=== PATIENT | male | born 1950 | race Caucasian/White ===

== ENCOUNTER 2018-03-17 14:18 | Inpatient (IN) | payer MEDICARE ==
[~2018-03-17] VITALS: Ht 172.7 cm; Wt 89.7 kg
[2018-03-17] VITALS (128 sets, daily range): BP systolic 105–107; BP diastolic 57–62; PULSE 58–75; TEMP 97.8–98.2; O2SAT 90–97
[~2018-03-17 14:18] MED LIST: ASPIRIN 81M81 MG/TA2 PO; ATROVENT I0.2 MG/1 M IH; BYSTOLIC5 MG PO; CADUET 5 MG-101 TAB PO; CORDARONE200 MG/TAB PO; ELIQUIS 5MG PO; LOPRESSOR 225 MG/TAB PO; PROVENTIL0.09 MG/A1 IH; RT ADVAIR 228 DISKUS IH; RT SPIRIVA18 MCG IH; ZESTRIL 20MG TA20 MG PO
[2018-03-17] MEDS ORDERED: CORDARONE200 MG/TAB PO (14:43)
[2018-03-17] MEDS ORDERED: NORVASC 5MG5 MG/TAB PO (14:44)
[2018-03-17] MEDS ORDERED: ARICEPT 5MG PO (14:44)
[2018-03-17 14:45] LABS: BASO % 0.2 % (0.0-2.0); EOS # 0.1 (0.0-0.7); GRAN # 7.6 (1.4-6.5); GRAN % 75.8 % (42.2-75.2); HEMATOCRIT 37.5 % (42.0-52.0); HEMOGLOBIN 12.4 g/dl (13.5-18.0); LYMPH # 1.8 (1.2-3.4); LYMPH % 17.4 % (20.0-51.0); MEAN CELL VOLUME 89 fl (80.0-100.0); MEAN CORPUSCULAR HEMOGLOBIN 30 pg (27.0-31.0); MEAN CORPUSCULAR HGB CONC 33 g/dl (33.0-37.0); MEAN PLATELET VOLUME 8.7 fl (7.4-10.4); MONO # 0.5 (0.1-0.6); MONO % 4.6 % (1.7-9.3); PLATELET COUNT 318 K/mm3 (130-400); REDCELL DISTRIBUTION WIDTH-CV 14.5 % (11.5-14.5)
[2018-03-17 14:47] LABS: PROTHROMBIN TIME 11.8 SECONDS (9.7-12.8)
[2018-03-17 14:59] LABS: ALANINE AMINOTRANSFERASE 36 U/L (21-72); ALBUMIN 3.5 gm/dL (3.5-5.0); ALKALINE PHOSPHATASE 92 U/L (50-136); ANION GAP 13 mmol/L (7-16); AST,SGOT 37 U/L (15-37); BILIRUBIN,TOTAL 0.3 mg/dL (0.0-1.0); BLOOD UREA NITROGEN 12 mg/dL (9-20); CALCIUM 8.5 mg/dL (8.4-10.2); CARBON DIOXIDE 23 mmol/L (22-30); CHLORIDE 100 mmol/L (98-107); CREATININE, serum 1.22 mg/dL (0.66-1.25); GLUCOSE 84 mg/dL (74-106); POTASSIUM 3.8 mmol/L (3.4-5.0); SODIUM 136 mmol/L (137-145); TOTAL PROTEIN 7.1 gm/dL (6.4-8.2)
[2018-03-17] MEDS ORDERED: LIPITOR20 MG PO (15:11)
[2018-03-17] MEDS ORDERED: NORCO 325 MG-51 TAB PO (15:12)
[2018-03-17 15:17] LABS: TROPONIN-I < 0.012 ng/mL (0.000-0.034)
[2018-03-18] VITALS (572 sets, daily range): BP systolic 97–140; BP diastolic 41–81; PULSE 52–90; TEMP 97.7–98.1; O2SAT 86–100
[2018-03-18 06:01] LABS: BASO % 0.1 % (0.0-2.0); EOS # 0.1 (0.0-0.7); EOS % 0.9 % (0-4.0); GRAN # 8.1 (1.4-6.5); GRAN % 82.4 % (42.2-75.2); LYMPH # 1.1 (1.2-3.4); MEAN CELL VOLUME 91 fl (80.0-100.0); MEAN CORPUSCULAR HGB CONC 32 g/dl (33.0-37.0); MEAN PLATELET VOLUME 8.7 fl (7.4-10.4); MONO # 0.5 (0.1-0.6); MONO % 4.8 % (1.7-9.3); PLATELET COUNT 235 K/mm3 (130-400); RED BLOOD COUNT 3.45 M/mm3 (4.20-5.60); REDCELL DISTRIBUTION WIDTH-CV 14.6 % (11.5-14.5)
[2018-03-18 06:02] LABS: HEMATOCRIT 31.5 % (42.0-52.0); HEMOGLOBIN 10.1 g/dl (13.5-18.0); MEAN CORPUSCULAR HEMOGLOBIN 29 pg (27.0-31.0)
[2018-03-18 06:11] LABS: CALCIUM 8.1 mg/dL (8.4-10.2); CREATININE, serum 0.95 mg/dL (0.66-1.25); POTASSIUM 3.9 mmol/L (3.4-5.0)
[2018-03-19] VITALS (140 sets, daily range): BP systolic 126–142; BP diastolic 58–101; PULSE 68–85; TEMP 97.8–98.3; O2SAT 83–96
[2018-03-19 05:55] LABS: BASO % 0.2 % (0.0-2.0); EOS # 0.2 (0.0-0.7); GRAN # 6.7 (1.4-6.5); GRAN % 77.9 % (42.2-75.2); HEMOGLOBIN 10.8 g/dl (13.5-18.0); LYMPH # 1.2 (1.2-3.4); LYMPH % 13.3 % (20.0-51.0); MEAN CELL VOLUME 90 fl (80.0-100.0); MEAN CORPUSCULAR HEMOGLOBIN 29 pg (27.0-31.0); MEAN CORPUSCULAR HGB CONC 32 g/dl (33.0-37.0); MEAN PLATELET VOLUME 8.6 fl (7.4-10.4); MONO # 0.5 (0.1-0.6); PLATELET COUNT 243 K/mm3 (130-400); RED BLOOD COUNT 3.72 M/mm3 (4.20-5.60); REDCELL DISTRIBUTION WIDTH-CV 14.5 % (11.5-14.5)
[2018-03-19 05:58] LABS: HEMATOCRIT 33.5 % (42.0-52.0)
[2018-03-19 06:07] LABS: CALCIUM 8.5 mg/dL (8.4-10.2); CREATININE, serum 0.82 mg/dL (0.66-1.25)
[2018-03-20 00:30] VITALS: BP 118/47; PULSE 77; TEMP 97.7
[2018-03-20 05:19] VITALS: BP 122/58; PULSE 69
[2018-03-20 07:19] VITALS: BP 112/61; PULSE 82
[2018-03-20 12:30] VITALS: BP 124/56; PULSE 75; TEMP 98.6
[2018-03-20 16:38] VITALS: BP 116/52; PULSE 69; TEMP 98.3
[2018-03-20 20:05] VITALS: BP 141/76; PULSE 72; TEMP 98.1
== END 2018-03-20 21:00 | disposition short-term general hospital (02) | DRG 193 ==
LOC: COL.ER 14:18 → ICU 16:48 → MEDICAL 03-19 10:10 → ICU 03-19 10:10 → MEDICAL 03-19 10:10
PROVIDERS: Emergency Medicine; Physician Assistant
DX: J15.9 Unspecified bacterial pneumonia (principal); I61.8 Other nontraumatic intracerebral hemorrhage; J44.0 Chronic obstructive pulmonary disease with (acute) lower respiratory infection; I10 Essential (primary) hypertension; Z87.891 Personal history of nicotine dependence; I25.10 Atherosclerotic heart disease of native coronary artery without angina pectoris; Z95.5 Presence of coronary angioplasty implant and graft; F03.90 Unspecified dementia, unspecified severity, without behavioral disturbance, psychotic disturbance, mood disturbance, and anxiety; I72.0 Aneurysm of carotid artery
CPT/HCPCS: 99223-AI; 99232-AI; 99233-AI; 99239; A9502; A9585; J0456; J0696; J2785; J7030; J7050; J7120; Q9967

== ENCOUNTER 2018-05-14 06:40 | Day surgery (SDC) | payer MEDICARE, MEDICAID ==
[~2018-05-14] VITALS: Ht 190.5 cm; Wt 91.6 kg
[~2018-05-14 06:40] MED LIST changes: +ARICEPT 5MG PO; +LIPITOR20 MG PO; +NORCO 325 MG-51 TAB PO; +NORVASC 5MG5 MG/TAB PO
[2018-05-14 07:35] VITALS: BP 129/77; PULSE 53; TEMP 98
[2018-05-14] MEDS ORDERED: TRELEGY ELLIPT1 EACH IH ×2 (07:51→07:52)
[2018-05-14] MEDS ORDERED: ASPIRIN 81M81 MG/TA2 (07:52)
[2018-05-14] MEDS ORDERED: ASPIRIN 81M81 MG/TA2 PO (07:53)
[2018-05-14] MEDS ORDERED: ELIQUIS 2.5 PO (08:03)
[2018-05-14] MEDS ORDERED: ELIQUIS 5MG PO (08:09)
[2018-05-14 09:45] VITALS: BP 123/67; PULSE 94
[2018-05-14 10:00] VITALS: BP 119/61; PULSE 48
[2018-05-14 10:15] VITALS: BP 108/56; PULSE 54
[2018-05-14 10:30] VITALS: BP 114/54; PULSE 53
[2018-05-14 14:28] VITALS: BP 101/64; PULSE 55
== END 2018-05-14 10:57 | disposition home or self-care (01) ==
LOC: SDCO 06:40
DX: C34.12 Malignant neoplasm of upper lobe, left bronchus or lung (principal); J98.11 Atelectasis; I10 Essential (primary) hypertension; I48.91 Unspecified atrial fibrillation; F03.90 Unspecified dementia, unspecified severity, without behavioral disturbance, psychotic disturbance, mood disturbance, and anxiety; J44.9 Chronic obstructive pulmonary disease, unspecified; I27.20 Pulmonary hypertension, unspecified; I25.10 Atherosclerotic heart disease of native coronary artery without angina pectoris; E78.5 Hyperlipidemia, unspecified; I69.320 Aphasia following cerebral infarction; Z95.818 Presence of other cardiac implants and grafts; Z79.01 Long term (current) use of anticoagulants; Z79.82 Long term (current) use of aspirin; Z99.81 Dependence on supplemental oxygen; Z87.891 Personal history of nicotine dependence
CPT/HCPCS: J2704; J7120

== ENCOUNTER 2018-06-04 07:13 | Day surgery (SDC) | payer MEDICARE, MEDICAID ==
[~2018-06-04] VITALS: Ht 190.5 cm; Wt 93.0 kg
[~2018-06-04 07:13] MED LIST changes: +ASPIRIN 81M81 MG/TA2; +ELIQUIS 2.5 PO; +LIPITOR 10MG10 MG PO; -LIPITOR20 MG PO; +NORVASC 10MG10 MG PO; -NORVASC 5MG5 MG/TAB PO; +TRELEGY ELLIPT1 EACH IH
[2018-06-04 08:03] VITALS: BP 107/56; PULSE 58; TEMP 97.4
[2018-06-04 08:40] VITALS: BP 117/62; PULSE 55; TEMP 97.4
[2018-06-04 09:55] VITALS: BP 134/74; PULSE 74
== END 2018-06-04 09:20 | disposition home or self-care (01) ==
LOC: SDCO 07:13
DX: R91.8 Other nonspecific abnormal finding of lung field (principal); R59.0 Localized enlarged lymph nodes; J98.11 Atelectasis; I10 Essential (primary) hypertension; I27.20 Pulmonary hypertension, unspecified; Z87.891 Personal history of nicotine dependence; J44.9 Chronic obstructive pulmonary disease, unspecified; Z80.1 Family history of malignant neoplasm of trachea, bronchus and lung; Z86.79 Personal history of other diseases of the circulatory system
CPT/HCPCS: J2704; J3010

== ENCOUNTER 2018-06-09 08:42 | Day surgery (SDC) | payer MEDICARE, MEDICAID ==
[~2018-06-09] VITALS: Ht 182.9 cm; Wt 93.5 kg
[2018-06-09 10:42] VITALS: BP 116/68; PULSE 68; TEMP 97.5
[2018-06-09 13:30] VITALS: BP 99/50; PULSE 53; TEMP 97.4
[2018-06-09 13:45] VITALS: BP 99/59; PULSE 60
[2018-06-09 14:00] VITALS: BP 105/53; PULSE 54
[2018-06-09 14:15] VITALS: BP 109/54; PULSE 54
== END 2018-06-09 14:30 | disposition home or self-care (01) ==
LOC: SDCO 08:42
DX: C34.91 Malignant neoplasm of unspecified part of right bronchus or lung (principal); J18.9 Pneumonia, unspecified organism; R91.8 Other nonspecific abnormal finding of lung field; I10 Essential (primary) hypertension; I48.91 Unspecified atrial fibrillation; I27.20 Pulmonary hypertension, unspecified; F03.90 Unspecified dementia, unspecified severity, without behavioral disturbance, psychotic disturbance, mood disturbance, and anxiety; J90 Pleural effusion, not elsewhere classified; I25.2 Old myocardial infarction; I25.10 Atherosclerotic heart disease of native coronary artery without angina pectoris; J44.9 Chronic obstructive pulmonary disease, unspecified; Z79.01 Long term (current) use of anticoagulants; Z87.891 Personal history of nicotine dependence; Z86.73 Personal history of transient ischemic attack (TIA), and cerebral infarction without residual deficits
CPT/HCPCS: J2704; J7120

== ENCOUNTER → 2018-06-17 | Outpatient (CLI) | payer MEDICARE, MEDICAID ==
[2018-06-17 11:05] LABS: BASO % 0.8 % (0.0-2.0); EOS # 0.1 (0.0-0.7); EOS % 1.5 % (0-4.0); GRAN # 3.5 (1.4-6.5); GRAN % 66.8 % (42.2-75.2); HEMOGLOBIN 13.5 g/dl (13.5-18.0); LYMPH # 1.1 (1.2-3.4); LYMPH % 21.3 % (20.0-51.0); MEAN CELL VOLUME 91 fl (80.0-100.0); MEAN CORPUSCULAR HEMOGLOBIN 31 pg (27.0-31.0); MEAN CORPUSCULAR HGB CONC 34 g/dl (33.0-37.0); MEAN PLATELET VOLUME 9.1 fl (7.4-10.4); MONO # 0.5 (0.1-0.6); MONO % 9.4 % (1.7-9.3); PLATELET COUNT 198 K/mm3 (130-400); RED BLOOD COUNT 4.41 M/mm3 (4.20-5.60)
== END ==
LOC: COL.LAB 10:37
PROVIDERS: Radiology Radiation Oncology
DX: C34.12 Malignant neoplasm of upper lobe, left bronchus or lung (principal); C34.31 Malignant neoplasm of lower lobe, right bronchus or lung

== ENCOUNTER 2018-09-03 06:35 | Day surgery (SDC) | payer MEDICARE, MEDICAID ==
[~2018-09-03] VITALS: Ht 182.9 cm; Wt 96.9 kg
[2018-09-03 07:00] VITALS: BP 106/62; PULSE 77; TEMP 97.3
[2018-09-03 09:15] VITALS: BP 91/53; PULSE 72; TEMP 97.6
--- NOTE | 2018-09-03 09:15 | NUR ---
The patient arrived back to [facility] from the operating room at this time. The patient appears alert and oriented and denies any pain or nausea at this time. Post operative vital signs were started at this time. The patient's bandaid and gauze dressings to his right chest appears clean, dry, and intact. The patient states he just wants "my tea" to drink. Call light is within reach. Will continue to monitor the patient.
[2018-09-03 09:30] VITALS: BP 99/61; PULSE 66
--- NOTE | 2018-09-03 09:30 | NUR ---
The patient now has his tea and his caregiver, Maureen, is at his bedside. The patient agrees to try some vanilla and chocolate pudding. The patient's vital signs appear stable. The patient continues to deny any pain or nausea. Will continue to monitor the patient.
[2018-09-03 09:45] VITALS: BP 102/48; PULSE 62
--- NOTE | 2018-09-03 09:45 | NUR ---
The patient continues to deny any pain and appears to be tolerating the pudding well. Maureen remains at his beside. Will continue to monitor the patient.
[2018-09-03 10:00] VITALS: BP 104/49; PULSE 73
--- NOTE | 2018-09-03 10:00 | NUR ---
The patient reports a desire to be discharged home. He has finished his pudding and appeared to tolerate both well. Vital signs appear stable and he continues to deny any pain or nausea.
[2018-09-03] MEDS ORDERED: NORCO 325 MG-51 TAB PO (10:02)
--- NOTE | 2018-09-03 10:15 | NUR ---
Discharge instructions were reviewed with the patient and his caregiver at this time. They both verbalized understanding and have no questions for the nurse at this time. The patient's IV to his left hand was removed and a pressure dressing was applied to the site. The patient did have a small amount of drainage present on the gauze dressing that was marked at this time. The nurse encouarged the patient and the caregiver to monitor this and notify the physician if it progresses and saturates the dressing. The nurse also instructed them that if the dressing does become saturated to not remove the dressing but place another dressing on top until they receive further instructions from the physician. The patient was instructed to get dressed and notify the staff he is ready to be escorted out.
--- NOTE | 2018-09-03 10:25 | NUR ---
The patient was escorted out via wheelchair to a private vehicle by ESAU Norris. The patient's belongings and discharge paperwork were sent with him. The patient's caregiver, Maureen, is present to drive him home.
== END 2018-09-03 10:25 | disposition home or self-care (01) ==
LOC: SDCO 06:35
DX: C34.92 Malignant neoplasm of unspecified part of left bronchus or lung (principal); C34.91 Malignant neoplasm of unspecified part of right bronchus or lung; Z79.82 Long term (current) use of aspirin; Z79.01 Long term (current) use of anticoagulants; I25.10 Atherosclerotic heart disease of native coronary artery without angina pectoris; I10 Essential (primary) hypertension; F03.90 Unspecified dementia, unspecified severity, without behavioral disturbance, psychotic disturbance, mood disturbance, and anxiety; Z87.891 Personal history of nicotine dependence; J44.9 Chronic obstructive pulmonary disease, unspecified; E78.5 Hyperlipidemia, unspecified; I69.391 Dysphagia following cerebral infarction; R13.10 Dysphagia, unspecified; I69.311 Memory deficit following cerebral infarction; Z79.899 Other long term (current) drug therapy; I48.91 Unspecified atrial fibrillation; Z92.3 Personal history of irradiation; J45.909 Unspecified asthma, uncomplicated; Z82.3 Family history of stroke; Z80.1 Family history of malignant neoplasm of trachea, bronchus and lung; Z82.49 Family history of ischemic heart disease and other diseases of the circulatory system; Z86.79 Personal history of other diseases of the circulatory system
CPT/HCPCS: C1788; J0690; J1100; J1644; J2250; J2405; J2704; J3010; J7120